=== PATIENT | female | born 1955 | race Caucasian/White ===

== ENCOUNTER 2017-08-28 22:15 | Emergency (ER) | payer BC, OTHER ==
[2017-08-29 00:02] VITALS: RESP 18
[2017-08-29] MEDS ORDERED: Tetanus/Diphtheria Toxoids 0.5 ml Syringe IM ONE ×2 (01:43→01:47)
--- NOTE | 2017-08-29 01:55 | C.PDOC ---
History Of Present Illness 61yo female presents to ER for evaluation of head injury earlier today. Patient states she was pulling something down and a metal piece of an object hit the top of her head. She reports a small laceration to her scalp and states she has a mild headache. She denies any nausea, vomiting, loss of consciousness. No other complaints. Time Seen by Provider: 08/29/17 00:07 Chief Complaint (Nursing): Abnormal Skin Integrity History Per: Patient History/Exam Limitations: no limitations Onset/Duration Of Symptoms: Hrs Current Symptoms Are (Timing): Still Present Past Medical History Reviewed: Historical Data, Nursing Documentation, Vital Signs Vital Signs: Last Vital Signs Temp 98.2 F 08/29/17 02:08 Pulse 73 08/29/17 02:08 Resp 18 08/29/17 02:08 BP 123/71 08/29/17 02:08 Pulse Ox 99 08/29/17 03:30 - Medical History PMH: Hyperlipidemia Surgical History: No Surg Hx Family History: States: Unknown Family Hx - Social History Hx Tobacco Use: No Hx Alcohol Use: No Hx Substance Use: No - Immunization History Hx Tetanus Toxoid Vaccination: No Hx Influenza Vaccination: No Hx Pneumococcal Vaccination: No Review Of Systems Eyes: Negative for: Vision Change Gastrointestinal: Negative for: Nausea, Vomiting Neurological: Positive for: Headache (mild), Other (laceration to scalp) Physical Exam - Physical Exam Appears: Non-toxic, No Acute Distress Skin: Warm, Diaphoretic Head: Normacephalic, No Swelling, Abrasion (small abrasion noted to mid scalp) Eye(s): bilateral: Normal Inspection, PERRL, EOMI Neck: Normal ROM, Supple Chest: Symmetrical Cardiovascular: Rhythm Regular Respiratory: Normal Breath Sounds Neurological/Psych: Oriented x3, Normal Speech, Normal Cognition, Normal Motor, Normal Sensation ED Course And Treatment O2 Sat by Pulse Oximetry: 99 (RA) Pulse Ox Interpretation: Normal Progress Note: Wound irrigated with normal saline. No repair indicated. Patient given Tylenol 975mg PO with improvement of pain. Patient also given TDAP booster. Disposition - Disposition Referrals: Non [facility] Provider, [Primary Care Provider] - [facility] [Outside] Disposition: HOME/ ROUTINE Disposition Time: 01:52 Condition: STABLE Additional Instructions: Increase PO fluids Take tylenol or motrin for pain Return to ER if severe headache, dizziness, weakness, vomiting or worse Instructions: Head Injury (ED) Forms: [employer] (Romanian) - Clinical Impression Clinical Impression: Head injury due to trauma, Scalp abrasion - PA / [employer] / Resident Statement MD/DO has reviewed & agrees with the documentation as recorded. - Scribe Statement The provider has reviewed the documentation as recorded by the Scribe (Hanny Jennings) Provider Scribe Attestation: All medical record entries made by the Scribe were at my direction and personally dictated by me. I have reviewed the chart and agree that the record accurately reflects my personal performance of the history, physical exam, medical decision making, and the department course for this patient. I have also personally directed, reviewed, and agree with the discharge instructions and disposition.
[2017-08-29 02:09] VITALS: BP 123/71; PULSE 73; TEMP 98.2
[2017-08-29 03:29] VITALS: O2SAT 99
== END 2017-08-29 02:09 | disposition home or self-care (01) ==
LOC: SUPCPDRO 22:15 → C.ER 22:15
DX: S00.01XA Abrasion of scalp, initial encounter (principal); W22.8XXA Striking against or struck by other objects, initial encounter; Z23 Encounter for immunization; E78.5 Hyperlipidemia, unspecified